=== PATIENT | female | born 1940 | race African-American/Black ===

== ENCOUNTER → 2016-09-07 | Outpatient (CLI) | payer OTHER, SELFPAY ==
--- NOTE | 2016-09-08 02:33 | REP ---
Clinical: Chronic arthritis for leg length. Technique: AP view of the bilateral lower extremities. 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 Advanced degenerative changes to the bilateral knee joints (left greater than right) noted. Right lower extremity from the superior aspect of the femoral head to the inferior articular surface of the tibia at the ankle mortise measures 88.5 cm. Left lower extremity from the superior aspect of the femoral head to the inferior articular surface of the tibia at the ankle mortise measures 86.5 cm. Impression: Degenerative changes and leg lengths as described above Signed by Pavel Mckinney MD 09/08/2016 02:25 A
== END ==
LOC: M RAD 15:02 → EDBD 15:02
PROVIDERS: ATTEND Orthopaedic Surgery
DX: M21.752 Unequal limb length (acquired), left femur (principal); M21.762 Unequal limb length (acquired), left tibia; M17.12 Unilateral primary osteoarthritis, left knee